=== PATIENT | male | born 1965 | race Caucasian/White ===

== ENCOUNTER 2016-12-01 08:18 | Emergency (ER) | payer OTHER ==
[2016-12-01 08:32] VITALS: BP 119/67; PULSE 81; TEMP 98.2; BMI 28.7
--- NOTE | 2016-12-01 08:33 | PDOC ---
History of Present Illness - General Chief Complaint: Injury Stated Complaint: LEFT FOOT Time Seen by Provider: 12/01/16 08:21 History Source: Patient Exam Limitations: No Limitations - History of Present Illness Initial Comments: 12/01/16 08:30 51 y/o male with left foot pain. Swollen and difficult to walk on. Occurred yesterday, and using crutches. Took pain medication with little relief. No redness. UTD with Tetanus. Severity: mild Past History - Past Medical History Allergies/Adverse Reactions: Allergies Allergy/AdvReac Type Severity Reaction Status Date / Time No Known Allergies Allergy Verified 12/01/16 08:19 Home Medications: Ambulatory Orders NK [No Known Home Medication] 12/01/16 Review of Systems - Review of Systems Able to Perform ROS?: Yes Is the patient limited Slovak proficient: No Constitutional: No: Chills, Diaphoresis Respiratory: No: Cough, Orthopnea, Shortness of Breath Cardiac (ROS): No: Chest Pain, Irregular Heart Rate : No: Dysuria Musculoskeletal: Yes: Joint Pain. No: Back Pain, Muscle Pain Neurological: No: Headache, Numbness, Paresthesia All Other Systems: Reviewed and Negative *Physical Exam - Physical Exam General Appearance: Yes: Nourished, Appropriately Dressed. No: Apparent Distress HEENT: positive: EOMI, LACHO, Normal ENT Inspection Neck: positive: Normal Thyroid, Supple Respiratory/Chest: positive: Lungs Clear, Normal Breath Sounds Cardiovascular: positive: Regular Rhythm, Regular Rate, S1, S2 Vascular Pulses: Femoral (R): 4+, Femoral (L): 4+, Carotid (R): 4+, Carotid (L) : 4+, Dorsalis-Pedis (R): 4+, Doralis-Pedis (L): 4+ Extremity: positive: Normal Capillary Refill. negative: Normal Inspection ( left foot dorsum with abrasion and swelling no redness or sign of infection, pulses 2+/4 b/l in LE, no focal deficits no compartment syndrome noted) Integumentary: positive: Normal Color, Dry, Warm Neurologic: positive: assistant director of nursing II-XII NML intact, Fully Oriented, Alert, Normal Mood/ Affect, Normal Response, Motor Strength /5 ED Treatment Course - ADDITIONAL ORDERS Additional order review: 12/01/16 08:33 Left foot contusion, will r/o fracture 12/01/16 09:11 Left foot neg for fracture Will discharge home with crutches, ice, Motrin If worsen return to ER Pt is in agreement with plan - RADIOLOGY Radiology Studies Ordered: Category Date Time Status FOOT-LEFT [RAD] Stat Radiology 12/01/16 08:30 Ordered *DC/Admit/Observation/Transfer Diagnosis at time of Disposition: Contusion of left foot Qualifiers: Encounter type: initial encounter Qualified Code(s): S90.32XA - Contusion of left foot, initial encounter - Discharge Dispostion Disposition: HOME Condition at time of disposition: Good Admit: No - Patient Instructions Printed Discharge Instructions: DI for Contusion Additional Instructions: Ice, Motrin, rest, elevate Uses crutches as needed If worsen return to ER
== END 2016-12-01 09:19 | disposition home or self-care (01) ==
LOC: FER 08:18
DX: S90.32XA Contusion of left foot, initial encounter (principal); X58.XXXA Exposure to other specified factors, initial encounter; Y93.9 Activity, unspecified; Y92.9 Unspecified place or not applicable
CPT/HCPCS: 73630-TC-LT; 99281-25